=== PATIENT | female | born 1960 | race Caucasian/White ===

== ENCOUNTER 2017-08-21 21:39 | Emergency (ER) | payer BC ==
[2017-08-21] MEDS ORDERED: Famotidine IV* 10 MG/ML 2 ML (20 mg) IV SLOW PU ONE (22:01)
[2017-08-21] MEDS ORDERED: methylPREDNISolone 125 MG* 2 ML VIAL IV ONE (22:01)
[2017-08-21] MEDS ORDERED: hydrOXYzine HCL TAB* 50 MG PO ONE (22:01)
--- NOTE | 2017-08-21 23:57 | ED ---
Reji Banerjee SooYoung, scribed for Alexandra Castelan MD on 08/21/17 at 2204 . 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 Pt switched medications on 08/16/17 to Xeljanz from [facility] , has taken four doses. She takes it each morning, but did not take it this morning. Sx include pruritic diffuse hives, sores along scalp, sores in mouth. Denies fever. She took two Benadryl today with no relief, last one taken at 1600. PMHx: RA, fibromyalgia, lyme, HTN. Sees Dr. Rodriguez, director of quality improvement. - History of Current Complaint Chief Complaint: EDAllergicReaction Time Seen by Provider: 08/21/17 21:50 Hx Obtained From: Patient Onset/Duration: Started days ago, Still Present Timing: Constant Severity Currently: Severe Pain Intensity: 10 Pain Scale Used: 0-10 Numeric Location: Diffuse Character: Hives Alleviating Factor(s): Nothing Associated Signs And Symptoms: Positive: Rash - diffuse hives, Other: - pos: sores in mouth and scalp; neg: fever - Allergies/Home Medications Allergies/Adverse Reactions: Allergies Allergy/AdvReac Type Severity Reaction Status Date / Time bee venom protein (honey bee) Allergy Anaphylatic Verified 08/21/17 21:53 Shock ciprofloxacin [From Cipro] Allergy Rash Verified 08/21/17 21:53 clonidine Allergy Difficulty Verified 08/21/17 21:53 Breathing egg Allergy Anaphylatic Verified 08/21/17 21:53 Shock hydroxychloroquine Allergy Rash Verified 08/21/17 21:53 Iodine and Iodide Containing Allergy Unknown Verified 08/21/17 21:53 Produc Reaction Details Latex, Natural Rubber Allergy Rash Verified 08/21/17 21:53 Penicillins Allergy Bleeding Verified 08/21/17 21:53 rofecoxib Allergy Unknown Verified 08/21/17 21:53 Reaction Details Tetanus Vaccines and Toxoid Allergy Anaphylatic Verified 08/21/17 21:53 Shock tofacitinib [From Xeljanz] Allergy Rash And Verified 08/21/17 21:53 Itching hydrocodone AdvReac GI Upset Verified 08/21/17 21:53 PMH/Surg Hx/FS Hx/Imm Hx Previously Healthy: No - Lyme Cardiovascular History: Reports: Hx Hypertension GI History: Reports: Other GI Disorders - colitis, hemorrhoid Musculoskeletal History: Reports: Hx Rheumatoid Arthritis, Hx Fibromyalgia Infectious Disease History: No Infectious Disease History: Denies: Traveled Outside the [place] in Last 30 Days - Family History Known Family History: Positive: Other - non contributory - Social History Occupation: Retired Lives: With Family Alcohol Use: None Hx Substance Use: No Substance Use Type: Reports: None Smoking Status (MU): Never Smoked Tobacco Review of Systems Negative: Fever Positive: Other - sores in mouth Positive: Rash - diffuse hives, Other - sores on scalp All Other Systems Reviewed And Are Negative: Yes Physical Exam - Summary Physical Exam Summary: VITAL SIGNS: Reviewed. GENERAL: Patient is a well-developed and nourished FEMALE who is lying comfortable in the stretcher. Patient is not in any acute respiratory distress. HEAD AND FACE: No signs of trauma. No ecchymosis, hematomas or skull depressions. No sinus tenderness. EYES: PERRLA, EOMI x 2, No injected conjunctiva, no nystagmus. EARS: Hearing grossly intact. Ear canals and tympanic membranes are within normal limits. MOUTH: Oropharynx within normal limits. Fine, mild sores on her tongue NECK: Supple, trachea is midline, no adenopathy, no JVD, no carotid bruit, no c- spine tenderness, neck with full ROM. CHEST: Symmetric, no tenderness at palpation LUNGS: Clear to auscultation bilaterally. No wheezing or crackles. CVS: Regular rate and rhythm, S1 and S2 present, no murmurs or gallops appreciated. ABDOMEN: Soft, non-tender. No signs of distention. No rebound no guarding, and no masses palpated. Bowel sounds are normal. EXTREMITIES: FROM in all major joints, no edema, no cyanosis or clubbing. NEURO: Alert and oriented x 3. No acute neurological deficits. Speech is normal and follows commands. SKIN: Dry and warm. Scattered hives on hands, legs Triage Information Reviewed: Yes Vital Signs On Initial Exam: Initial Vitals Temp Pulse Resp BP Pulse Ox 98.5 F 82 14 169/82 97 08/21/17 21:42 08/21/17 21:42 08/21/17 21:42 08/21/17 21:42 08/21/17 21:42 Vital Signs Reviewed: Yes Diagnostics - Vital Signs Vital Signs Temp Pulse Resp BP Pulse Ox 08/21/17 21:42 98.5 F 82 14 169/82 97 - Laboratory Lab Statement: Any lab studies that have been ordered have been reviewed, and results considered in the medical decision making process. Re-Evaluation - Re-Evaluation 1 Re-Evaluation Time: 23:30 Change: Worse Comment: Pt states shes getting more hives, still itching. Discussing plans to D/C pt with steroids. And the need to f/u with rheumo tomorrow. Pt voiced understanding. 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 Pt switched medications on 08/16/17 to Xeljanz from [facility], has taken four doses. She takes it each morning, but did not take it this morning. Sx include pruritic diffuse hives, sores along scalp, sores in mouth. Denies fever. She took two Benadryl today with no relief, last one taken at 1600. PMHx: RA, fibromyalgia, lyme, HTN. Sees Dr. Rodriguez, director of quality improvement. Pt given Pepcid, Atarax, Solu-Medrol in ED. Upon reeval pt c/ o more hives. Discussing plans to D/C pt with steroids and the need to f/u with rheumo tomorrow. Pt voiced understanding. - Diagnoses Provider Diagnoses: Urticaria Discharge - Sign-Out/Discharge Documenting (check all that apply): Discharge/Admit/Transfer - DC - Discharge Plan Condition: Stable Disposition: HOME Prescriptions: hydrOXYzine pamoate [Vistaril] 50 mg PO TID PRN #20 capsule PRN Reason: Itching predniSONE TAB* [Deltasone TAB*] 50 mg PO DAILY #5 tab Patient Education Materials: Prednisone (By mouth), Hydroxyzine (By mouth), Urticaria (ED) Referrals: Ananya CARDONA,Ian Weems [Medical Doctor] - 1 Day Cristian Rodriguez MD [Medical Doctor] - 1 Day Additional Instructions: Stop taking the Xeljanz. Follow up with your primary care physician and your director of quality improvement tomorrow. RETURN TO THE EMERGENCY DEPARTMENT FOR CHANGING OR WORSENING SYMPTOMS. The documentation as recorded by the Reji soria SooYoung accurately reflects the service I personally performed and the decisions made by me, Alexandra Castelan MD.
[2017-08-22 00:29] VITALS: BP 167/91
== END 2017-08-22 01:34 | disposition home or self-care (01) ==
LOC: ED 21:39
DX: L50.9 Urticaria, unspecified (principal); R21 Rash and other nonspecific skin eruption; Z88.0 Allergy status to penicillin; I10 Essential (primary) hypertension
CPT/HCPCS: 96374; 96375; 99282; A9270-GY; J2930